=== PATIENT | male | born 1990 | race American Indian/Alaskan Native ===

== ENCOUNTER 2017-03-19 10:41 | Emergency (ER) | payer MEDICAID, OTHER ==
--- NOTE | 2017-03-19 10:55 | EDM.PDOC ---
ED HPI GENERAL MEDICAL PROBLEM - General Chief Complaint: Behavioral/Psych Stated Complaint: [facility] Time Seen by Provider: 03/19/17 10:49 Source of Information: Reports: Patient, Old Records, RN, RN Notes Reviewed, Other (Caridad Daniels ([facility])) - History of Present Illness INITIAL COMMENTS - FREE TEXT/NARRATIVE: Arrives to ER from the [facility] detained by police with report from Caridad Daniels that the pt has been place on an involuntary hold for transfer and admission to [facility] to Dr. Kimble following a medical screening exam in the ER. Pt has Hx of Bipoloar D/O, ADHD, Disruptive D/O, Impulse Control and Conduct D/O , with Borderline Intellectual Functioning, Alcohol Syndrome, OCD, and substance abuse. Pt is not able to provide any significant history. Pt denies any concerns of medical illness, or recent injury. Onset: Unknown/Unsure Duration: Chronic, Getting Worse Location: Reports: Generalized Quality: Reports: Same as Previous Episode Severity: Severe Improves with: Reports: None Worsens with: Reports: Other (noncompliance with medications, and substance abuse) Associated Symptoms: Reports: No Other Symptoms - Related Data Allergies Allergy/AdvReac Type Severity Reaction Status Date / Time cephalexin monohydrate Allergy Hives Verified 03/19/17 10:59 [From Keflex] Home Meds: Home Meds risperiDONE Microspheres [RisperiDAL Consta] 25 mg IM .Q2WEEK 10/10/14 [History] FLUoxetine [PROzac] 20 mg PO DAILY 01/09/16 [History] atoMOXetine [Strattera] 60 mg PO DAILY 01/09/16 [History] hydrOXYzine Pamoate [Hydroxyzine Pamoate] 50 mg PO BEDTIME 01/09/16 [History] Past Medical History - Past Health History Medical/Surgical History: Denies Medical/Surgical History Musculoskeletal History: Reports: Fracture Other Musculoskeletal History: RIGHT WRIST FRACTURE Neurological History: Reports: Other (See Below) Other Neuro History: Impulse Control Disorder Psychiatric History: Reports: ADHD, Addiction, Aggressive/Hostile Behaviors, Anxiety, Bipolar, Depression, Developmental Delay (FAS), Emotional Problems, Learning Disability, Mood Swings, OCD, Psych Hospitalization(s), Other (See Below) Other Psychiatric History: Polysubstance abuse in the past. Alcoholism. Outbursts of anger/impulse control disorder. Endocrine/Metabolic History: Reports: Obesity/BMI 30+ Dermatologic History: Reports: Cellulitis, Other (See Below) Other Dermatologic History: CHICKEN POX - Infectious Disease History Infectious Disease History: Reports: Chicken Pox Social & Family History - Family History Family Medical History: Unobtainable (pt not sure) - Tobacco Use Smoking Status *Q: Current Status Unknown Second Hand Smoke Exposure: Yes - Caffeine Use Caffeine Use: Reports: Coffee, Energy Drinks, Soda - Alcohol Use Alcohol Use History: Yes Days Per Week of Alcohol Use: 7 Number of Drinks Per Day: 24 Total Drinks Per Week: 168 Alcohol Use Frequency: Daily - Recreational Drug Use Recreational Drug Use: Yes Drug Use in Last 12 Months: Yes Recreational Drug Type: Reports: Marijuana/Hashish Recreational Drug Use Frequency: Socially - Sexual History Sexual History: Reports: Sexually Active - Living Situation & Occupation Living situation: Reports: with Family Occupation: Employed ED ROS GENERAL - Review of Systems Review Of Systems: ROS reveals no pertinent complaints other than HPI. ED EXAM, BEHAVIORAL HEALTH - Physical Exam Exam: See Below Exam Limited By: No Limitations General Appearance: Alert, WD/WN, No Apparent Distress Eye Exam: Bilateral Eye: Normal Inspection Ears: Normal External Exam, Hearing Grossly Normal Nose: Normal Inspection Throat/Mouth: Normal Inspection Head: Atraumatic, Normocephalic Neck: Normal Inspection Respiratory/Chest: No Respiratory Distress, Normal Breath Sounds Cardiovascular: Regular Rate, Rhythm GI/Abdominal: Normal Bowel Sounds, Soft, Non-Tender, No Distention (Male) Exam: Deferred Rectal (Males) Exam: Deferred Back Exam: Normal Inspection Extremities: Normal Inspection Neurological: Alert, Normal Gait, No Motor/Sensory Deficits Psychiatric: Flat Affect, Restless, Poor Eye Contact Skin Exam: Warm, Dry, Intact, Normal color, No rash COURSE, BEHAVIORAL HEALTH COMP - Course Vital Signs: Last Vital Signs Temp 36.2 C 03/19/17 11:07 Pulse 92 03/19/17 11:07 Resp 16 03/19/17 11:07 BP 127/81 03/19/17 11:07 Pulse Ox 98 03/19/17 11:07 Orders, Labs, Meds: Laboratory Tests 03/19/17 03/19/17 03/19/17 Range/Units 10:55 10:55 10:58 WBC 4.7 L (5.0-10.0) 10^3/uL RBC 5.39 (4.6-6.2) 10^6/uL Hgb 15.2 (14.0-18.0) g/dL Hct 45.0 (40.0-54.0) % MCV 83.5 (80-100) fL MCH 28.2 (27.0-34.0) pg MCHC 33.8 (33.0-35.0) g/dL Plt Count 261 (150-450) 10^3/uL Neut % (Auto) 53.4 (42.2-75.2) % Lymph % (Auto) 34.8 (20.5-50.1) % [place] % (Auto) 8.4 H (2-8) % Eos % (Auto) 3.2 H (1.0-3.0) % Baso % (Auto) 0.2 (0.0-1.0) % Sodium 140 (135-145) mmol/L Potassium 3.3 L (3.6-5.0) mmol/L Chloride 107 (101-111) mmol/L Carbon Dioxide 22.0 (21.0-31.0) mmol/L Anion Gap 14.3 BUN 5 L (7-18) mg/dL Creatinine 0.8 (0.6-1.3) mg/dL Est Cr Clr Drug Dosing 138.70 mL/min Estimated GFR (MDRD) > 60 BUN/Creatinine Ratio 6.25 Glucose 136 H (74-105) mg/dL Calcium 8.8 (8.4-10.2) mg/dl Total Bilirubin 0.6 (0.2-1.0) mg/dL AST 49 H (10-42) IU/L ALT 39 (10-60) IU/L Alkaline Phosphatase 113 (42-121) IU/L Total Protein 8.3 H (6.7-8.2) g/dl Albumin 4.3 (3.2-5.5) g/dl Globulin 4.0 Albumin/Globulin Ratio 1.08 Urine Color (YELLOW) Urine Appearance (CLEAR) Urine pH (5.0-9.0) Ur Specific [place] (1.005-1.030) Urine Protein (NEGATIVE) Urine Glucose (UA) (NEGATIVE) Urine Ketones (NEGATIVE) Urine Occult Blood (NEGATIVE) Urine Nitrite (NEGATIVE) Urine Bilirubin (NEGATIVE) Urine Urobilinogen (0.2-1.0) mg/dL Ur Leukocyte Esterase (NEGATIVE) Urine RBC /HPF Urine WBC (0-5/HPF) /HPF Ur Epithelial Cells /HPF Urine Bacteria (0-FEW/HPF) /HPF Urine Mucus /LPF Salicylates < 4 Urine Opiates Screen Negative (NEGATIVE) Ur Oxycodone Screen Negative (NEGATIVE) Urine Methadone Screen Negative (NEGATIVE) Acetaminophen < 10 Ur Barbiturates Screen Negative (NEGATIVE) U Tricyclic Antidepress Negative (NEGATIVE) Ur Phencyclidine Scrn Negative (NEGATIVE) Ur Amphetamine Screen Negative (NEGATIVE) U Methamphetamines Scrn Negative (NEGATIVE) Urine MDMA Screen Negative (NEGATIVE) U Benzodiazepines Scrn Negative (NEGATIVE) Urine Cocaine Screen Negative (NEGATIVE) U Marijuana (THC) Screen Positive H (NEGATIVE) Ethyl Alcohol 87 mg/dL 03/19/17 Range/Units 10:58 WBC (5.0-10.0) 10^3/uL RBC (4.6-6.2) 10^6/uL Hgb (14.0-18.0) g/dL Hct (40.0-54.0) % MCV (80-100) fL MCH (27.0-34.0) pg MCHC (33.0-35.0) g/dL Plt Count (150-450) 10^3/uL Neut % (Auto) (42.2-75.2) % Lymph % (Auto) (20.5-50.1) % [place] % (Auto) (2-8) % Eos % (Auto) (1.0-3.0) % Baso % (Auto) (0.0-1.0) % Sodium (135-145) mmol/L Potassium (3.6-5.0) mmol/L Chloride (101-111) mmol/L Carbon Dioxide (21.0-31.0) mmol/L Anion Gap BUN (7-18) mg/dL Creatinine (0.6-1.3) mg/dL Est Cr Clr Drug Dosing mL/min Estimated GFR (MDRD) BUN/Creatinine Ratio Glucose (74-105) mg/dL Calcium (8.4-10.2) mg/dl Total Bilirubin (0.2-1.0) mg/dL AST (10-42) IU/L ALT (10-60) IU/L Alkaline Phosphatase (42-121) IU/L Total Protein (6.7-8.2) g/dl Albumin (3.2-5.5) g/dl Globulin Albumin/Globulin Ratio Urine Color Yellow (YELLOW) Urine Appearance Slightly cloudy (CLEAR) Urine pH 5.5 (5.0-9.0) Ur Specific [place] 1.020 (1.005-1.030) Urine Protein Negative (NEGATIVE) Urine Glucose (UA) Negative (NEGATIVE) Urine Ketones Trace H (NEGATIVE) Urine Occult Blood Negative (NEGATIVE) Urine Nitrite Negative (NEGATIVE) Urine Bilirubin Negative (NEGATIVE) Urine Urobilinogen 0.2 (0.2-1.0) mg/dL Ur Leukocyte Esterase Negative (NEGATIVE) Urine RBC 0-5 /HPF Urine WBC 0-5 (0-5/HPF) /HPF Ur Epithelial Cells Rare /HPF Urine Bacteria Rare (0-FEW/HPF) /HPF Urine Mucus Few H /LPF Salicylates Urine Opiates Screen (NEGATIVE) Ur Oxycodone Screen (NEGATIVE) Urine Methadone Screen (NEGATIVE) Acetaminophen Ur Barbiturates Screen (NEGATIVE) U Tricyclic Antidepress (NEGATIVE) Ur Phencyclidine Scrn (NEGATIVE) Ur Amphetamine Screen (NEGATIVE) U Methamphetamines Scrn (NEGATIVE) Urine MDMA Screen (NEGATIVE) U Benzodiazepines Scrn (NEGATIVE) Urine Cocaine Screen (NEGATIVE) U Marijuana (THC) Screen (NEGATIVE) Ethyl Alcohol mg/dL Medical Clearance: 03/19/17 11:25 NO MEDICAL CONTRAINDICATION TO BEING ADMITTED TO INPATIENT PSYCHIATRIC FACILITY AT THIS TIME. Departure - Departure Time of Disposition: 11:30 Disposition: DC/Tfer to Psych Hosp/Unit 65 Condition: serious Clinical Impression: Marijuana abuse, Alcohol abuse Bipolar disorder current episode depressed Qualifiers: Current episode severity: severe Psychotic features: with psychotic features Qualified Code(s): F31.5 - Bipolar disorder, current episode depressed, severe, with psychotic features - Discharge Information Forms: ED Department Discharge, Interfacility Transfer EMTALA
[2017-03-19 11:19] LABS: CHLORIDE,CL 107 mmol/L (101-111); SODIUM,NA 140 mmol/L (135-145)
[2017-03-19 11:20] LABS: ACETAMINOPHEN < 10
[2017-03-19 11:24] VITALS: BP 127/81
== END 2017-03-19 11:40 ==
LOC: DL.ED 10:41
DX: F10.10 Alcohol abuse, uncomplicated (principal); F12.10 Cannabis abuse, uncomplicated; F31.5 Bipolar disorder, current episode depressed, severe, with psychotic features; E66.9 Obesity, unspecified; F41.9 Anxiety disorder, unspecified; Z88.8 Allergy status to other drugs, medicaments and biological substances; Z79.899 Other long term (current) drug therapy; Y90.4 Blood alcohol level of 80-99 mg/100 ml
CPT/HCPCS: 36415; 80053; 80305; 81001; 85025; 99284; G0480

== ENCOUNTER 2019-06-23 16:41 | Observation (INO) | payer MEDICAID ==
[2019-06-23] MEDS ORDERED: Sodium Chloride 0.9% 1,000 ML IV ONE (16:51)
[2019-06-23] MEDS: Sodium Chloride 0.9% 10 ML Syringe FLUSH PRN (17:33)
[2019-06-23 17:44] LABS: ANION GAP 19.6; CHLORIDE,CL 106 mmol/L (101-111); SODIUM,NA 146 mmol/L (135-145)
[2019-06-23 17:46] LABS: ACETAMINOPHEN < 10 ug/mL
[2019-06-23] MEDS ORDERED: Sodium Chloride 0.9% 10 ML Syringe FLUSH PRN (19:02)
--- NOTE | 2019-06-23 19:24 | PCM.HP ---
H&P History of Present Illness - General Date of Service: 06/23/19 Admit Problem/Dx: Admission Diagnosis/Problem Admission Diagnosis/Problem Suicidal behavior Source of Information: Patient History Limitations: Reports: Intoxication - History of Present Illness Initial Comments - Free Text/Narative: 28 yo M with PMH of alcohol abuse disorder, psychiatric illness presents with alcoholic intoxication and suicidal ideation. History is limited as patient is intoxicated. He admits taking substances to get "high". Alcohol level is 352, salicylate, acetaminophen are negative. LFTs are however elevated. Patient has no chest pain, no SOB, no abd pain, no nausea or vomiting. He admits to having suicidal ideation, but had no plans. Will transfer to [facility] when medically stable. - Related Data Allergies/Adverse Reactions: Allergies Allergy/AdvReac Type Severity Reaction Status Date / Time cefprozil Allergy Hives Verified 05/01/19 07:38 cephalexin monohydrate Allergy Hives Verified 03/19/17 10:59 [From Keflex] Home Medications: Home Meds Naltrexone Microspheres [Vivitrol] 380 mg INJECT .[id number] 04/28/19 [History] risperiDONE [Risperdal] 37.5 mg INJECT .[id number] 04/28/19 [History] Past Medical History - Past Health History Medical/Surgical History: Denies Medical/Surgical History HEENT History: Reports: None Cardiovascular History: Reports: None Respiratory History: Reports: None Gastrointestinal History: Reports: None Other Gastrointestinal History: THROWING UP BLOOD Genitourinary History: Reports: None Musculoskeletal History: Reports: Fracture Other Musculoskeletal History: RIGHT WRIST FRACTURE Neurological History: Reports: Other (See Below) Other Neuro History: Impulse Control Disorder Psychiatric History: Reports: ADHD, Addiction, Aggressive/Hostile Behaviors, Anxiety, Bipolar, Depression, Developmental Delay, Emotional Problems, Learning Disability, Mood Swings, OCD, Psych Hospitalization(s), Other (See Below) Other Psychiatric History: Polysubstance abuse in the past. Alcoholism. Outbursts of anger/impulse control disorder. Endocrine/Metabolic History: Reports: Obesity/BMI 30+ Hematologic History: Reports: None Immunologic History: Reports: None Oncologic (Cancer) History: Reports: None Dermatologic History: Reports: Cellulitis, Other (See Below) Other Dermatologic History: CHICKEN POX - Infectious Disease History Infectious Disease History: Reports: Chicken Pox - Past Surgical History Head Surgeries/Procedures: Reports: None HEENT Surgical History: Reports: None Cardiovascular Surgical History: Reports: None GI Surgical History: Reports: None Male Surgical History: Reports: None Musculoskeletal Surgical History: Reports: None Social & Family History - Family History Family Medical History: Unobtainable - Tobacco Use Smoking Status *Q: Current Every Day Smoker Years of Tobacco use: 20 Packs/Tins Daily: 1 - Caffeine Use Caffeine Use: Reports: Soda - Alcohol Use Days Per Week of Alcohol Use: 7 Number of Drinks Per Day: 10 Total Drinks Per Week: 70 Date of Last Drink: 06/23/19 - Recreational Drug Use Recreational Drug Use: Yes Drug Use in Last 12 Months: Yes Recreational Drug Type: Reports: Marijuana/Hashish, Methamphetamine Recreational Drug Use Frequency: Socially - Sexual History Sexual History: Reports: Sexually Active - Living Situation & Occupation Living situation: Reports: with Family Occupation: Employed H&P Review of Systems - Review of Systems: Review Of Systems: Unable To Obtain (intoxication) Exam - Exam Exam: See Below - Vital Signs Vital Signs: Last Vital Signs Temp 36.6 C 06/23/19 18:46 Pulse 91 06/23/19 18:46 Resp 18 06/23/19 18:46 BP 124/79 06/23/19 18:46 Pulse Ox 100 06/23/19 18:46 Weight: 117.934 kg - Exam General: Other (intoxicated) HEENT: Hearing Intact, Pupils Equal, Pupils Reactive Neck: Supple, Trachea Midline Lungs: Clear to Auscultation, Normal Respiratory Effort Cardiovascular: Regular Rate, Regular Rhythm GI/Abdominal Exam: Normal Bowel Sounds, Soft, Tender Extremities: Normal Inspection, Normal Range of Motion, Non-Tender, No Pedal Edema - Patient Data Lab Results Last 24 hrs: Laboratory Results - last 24 hr 06/23/19 06/23/19 06/23/19 Range/Units 16:50 16:50 17:06 WBC 7.2 (5.0-10.0) 10^3/uL RBC 5.65 (4.6-6.2) 10^6/uL Hgb 16.2 (14.0-18.0) g/dL Hct 48.2 (40.0-54.0) % MCV 85.3 (80-100) fL MCH 28.7 (27.0-34.0) pg MCHC 33.6 (33.0-35.0) g/dL Plt Count 323 (150-450) 10^3/uL Neut % (Auto) 57.5 (42.2-75.2) % Lymph % (Auto) 34.8 (20.5-50.1) % [place] % (Auto) 6.0 (2-8) % Eos % (Auto) 1.4 (1.0-3.0) % Baso % (Auto) 0.3 (0.0-1.0) % Sodium (135-145) mmol/L Potassium (3.6-5.0) mmol/L Chloride (101-111) mmol/L Carbon Dioxide (21.0-31.0) mmol/L Anion Gap BUN (7-18) mg/dL Creatinine (0.6-1.3) mg/dL Est Cr Clr Drug Dosing Estimated GFR (MDRD) BUN/Creatinine Ratio Glucose (74-105) mg/dL Calcium (8.4-10.2) mg/dl Total Bilirubin (0.2-1.0) mg/dL AST (10-42) IU/L ALT (10-60) IU/L Alkaline Phosphatase (42-121) IU/L Total Protein (6.7-8.2) g/dl Albumin (3.2-5.5) g/dl Globulin Albumin/Globulin Ratio Urine Color Yellow (YELLOW) Urine Appearance Clear (CLEAR) Urine pH 6.0 (5.0-9.0) Ur Specific [place] <= 1.005 (1.005-1.030) Urine Protein Negative (NEGATIVE) Urine Glucose (UA) Negative (NEGATIVE) Urine Ketones Trace H (NEGATIVE) Urine Occult Blood Negative (NEGATIVE) Urine Nitrite Negative (NEGATIVE) Urine Bilirubin Negative (NEGATIVE) Urine Urobilinogen 1.0 (0.2-1.0) mg/dL Ur Leukocyte Esterase Negative (NEGATIVE) Salicylates mg/dL Urine Opiates Screen Negative (NEGATIVE) Ur Oxycodone Screen Negative (NEGATIVE) Urine Methadone Screen Negative (NEGATIVE) Acetaminophen ug/mL Ur Barbiturates Screen Negative (NEGATIVE) U Tricyclic Antidepress Negative (NEGATIVE) Ur Phencyclidine Scrn Negative (NEGATIVE) Ur Amphetamine Screen Negative (NEGATIVE) U Methamphetamines Scrn Negative (NEGATIVE) Urine MDMA Screen Negative (NEGATIVE) U Benzodiazepines Scrn Negative (NEGATIVE) Urine Cocaine Screen Negative (NEGATIVE) U Marijuana (THC) Screen Negative (NEGATIVE) Ethyl Alcohol mg/dL 06/23/19 Range/Units 17:06 WBC (5.0-10.0) 10^3/uL RBC (4.6-6.2) 10^6/uL Hgb (14.0-18.0) g/dL Hct (40.0-54.0) % MCV (80-100) fL MCH (27.0-34.0) pg MCHC (33.0-35.0) g/dL Plt Count (150-450) 10^3/uL Neut % (Auto) (42.2-75.2) % Lymph % (Auto) (20.5-50.1) % [place] % (Auto) (2-8) % Eos % (Auto) (1.0-3.0) % Baso % (Auto) (0.0-1.0) % Sodium 146 H (135-145) mmol/L Potassium 3.6 (3.6-5.0) mmol/L Chloride 106 (101-111) mmol/L Carbon Dioxide 24.0 (21.0-31.0) mmol/L Anion Gap 19.6 BUN 3 L (7-18) mg/dL Creatinine 0.8 (0.6-1.3) mg/dL Est Cr Clr Drug Dosing TNP Estimated GFR (MDRD) > 60 BUN/Creatinine Ratio 3.75 Glucose 103 (74-105) mg/dL Calcium 8.7 (8.4-10.2) mg/dl Total Bilirubin 1.1 H (0.2-1.0) mg/dL AST 469 H (10-42) IU/L ALT 457 H (10-60) IU/L Alkaline Phosphatase 129 H (42-121) IU/L Total Protein 9.1 H (6.7-8.2) g/dl Albumin 4.5 (3.2-5.5) g/dl Globulin 4.6 Albumin/Globulin Ratio 0.98 Urine Color (YELLOW) Urine Appearance (CLEAR) Urine pH (5.0-9.0) Ur Specific [place] (1.005-1.030) Urine Protein (NEGATIVE) Urine Glucose (UA) (NEGATIVE) Urine Ketones (NEGATIVE) Urine Occult Blood (NEGATIVE) Urine Nitrite (NEGATIVE) Urine Bilirubin (NEGATIVE) Urine Urobilinogen (0.2-1.0) mg/dL Ur Leukocyte Esterase (NEGATIVE) Salicylates < 4 mg/dL Urine Opiates Screen (NEGATIVE) Ur Oxycodone Screen (NEGATIVE) Urine Methadone Screen (NEGATIVE) Acetaminophen < 10 ug/mL Ur Barbiturates Screen (NEGATIVE) U Tricyclic Antidepress (NEGATIVE) Ur Phencyclidine Scrn (NEGATIVE) Ur Amphetamine Screen (NEGATIVE) U Methamphetamines Scrn (NEGATIVE) Urine MDMA Screen (NEGATIVE) U Benzodiazepines Scrn (NEGATIVE) Urine Cocaine Screen (NEGATIVE) U Marijuana (THC) Screen (NEGATIVE) Ethyl Alcohol 352 mg/dL Result Diagrams: 06/23/19 17:06 06/23/19 17:06 Problem List Initiated/Reviewed/Updated: Yes Orders Last 24hrs: Active Orders 24 hr Category Date Time Status Admission Diagnosis [ADT] Routine ADT 06/23/19 18:39 Ordered Patient Status [ADT] Routine ADT 06/23/19 18:39 Active Ambulate [RC] ASDIRECTED Care 06/23/19 19:03 Active Height and Weight [RC] DAILY Care 06/23/19 19:03 Active Oxygen Therapy [RC] PRN Care 06/23/19 19:03 Active Peripheral IV Care [RC] , Care 06/23/19 16:51 Active Suicide Precautions [RC] ASDIRECTED Care 06/23/19 19:03 Active Up With Assistance [RC] ASDIRECTED Care 06/23/19 19:03 Active VTE/DVT Education [RC] PER UNIT ROUTINE Care 06/23/19 19:03 Active Vital Signs [RC] Q4H Care 06/23/19 19:03 Active NPO After Midnight [Nothing per Oral After Midnight Diet 06/24/19 Breakfast Ordered Diet] [DIET] Regular Diet [DIET] Diet 06/23/19 Breakfast Active Abdomen Comp [US] Routine Exams 06/23/19 19:04 Ordered AMYLASE [CHEM] Routine Lab 06/23/19 19:07 Ordered BASIC METABOLIC PANEL,BMP [CHEM] AM Lab 06/24/19 05:11 Ordered BASIC METABOLIC PANEL,BMP [CHEM] AM Lab 06/25/19 05:11 Ordered BASIC METABOLIC PANEL,BMP [CHEM] AM Lab 06/26/19 05:11 Ordered CBC W/O DIFF,HEMOGRAM [HEME] AM Lab 06/24/19 05:11 Ordered CBC W/O DIFF,HEMOGRAM [HEME] AM Lab 06/25/19 05:11 Ordered CBC W/O DIFF,HEMOGRAM [HEME] AM Lab 06/26/19 05:11 Ordered HEPATIC FUNCTION PANEL,HFP [CHEM] AM Lab 06/24/19 05:11 Ordered HEPATIC FUNCTION PANEL,HFP [CHEM] AM Lab 06/25/19 05:11 Ordered HEPATIC FUNCTION PANEL,HFP [CHEM] AM Lab 06/26/19 05:11 Ordered LIPASE [CHEM] Routine Lab 06/23/19 19:07 Ordered Enoxaparin [Lovenox] Med 06/23/19 19:15 Ordered 40 mg SUBCUT DAILY LORazepam [Ativan] Med 06/23/19 19:02 Ordered See Protocol IVPUSH TITRATE PRN LORazepam [Ativan] Med 06/23/19 19:02 Ordered See Protocol PO TITRATE PRN Sodium Chloride 0.9% [Normal Saline] 1,000 ml Med 06/23/19 19:15 Ordered IV ASDIRECTED Sodium Chloride 0.9% [Saline Flush] Med 06/23/19 16:51 Active 10 ml FLUSH ASDIRECTED PRN Sodium Chloride 0.9% [Saline Flush] Med 06/23/19 19:02 Ordered 10 ml FLUSH ASDIRECTED PRN Peripheral IV Insertion Adult [OM.PC] Routine Oth 06/23/19 19:03 Ordered Peripheral IV Insertion Adult [OM.PC] Stat Ot 06/23/19 16:50 Ordered Saline Lock Insert [OM.PC] Routine Oth 06/23/19 19:03 Ordered Suicide Precautions BH [BH] Routine Ot 06/23/19 19:03 Ordered Suicide Precautions [OM.PC] Routine Ot 06/23/19 19:03 Ordered Resuscitation Status Routine Resus Stat 06/23/19 19:02 Ordered Medication Orders Enoxaparin Sodium (Lovenox) 40 mg SUBCUT DAILY SHERICE Sodium Chloride (Normal Saline) 1,000 mls @ 100 mls/hr IV ASDIRECTED SHERICE Lorazepam (Ativan) 0 mg PO TITRATE PRN; Protocol PRN Reason: Withdrawal Symptoms Lorazepam (Ativan) 0 mg IVPUSH TITRATE PRN; Protocol PRN Reason: Withdrawal Symptoms Sodium Chloride (Saline Flush) 10 ml FLUSH ASDIRECTED PRN PRN Reason: Keep Vein Open Last Admin: 06/23/19 17:33 Dose: 10 ml Sodium Chloride (Saline Flush) 10 ml FLUSH ASDIRECTED PRN PRN Reason: Keep Vein Open Assessment/Plan Comment:: Alcohol intoxication Monitor for alcohol withdrawal CIWA monitoring PRN ativan oral thiamine Elevated LFTs check lipase, amylase trend LFTs check RUQ US Suicidal ideation Suicidal precautions Transfer to [facility]U when medically stable DVT ppx SC lovenox
[2019-06-23] MEDS: Enoxaparin 40 MG/0.4 ML Syringe SUBCUT SCH (19:55)
[2019-06-23] MEDS: Sodium Chloride 0.9% 1,000 ML IV SCH (20:26)
[2019-06-23] MEDS: LORazepam 2 MG/ML Syringe IVPUSH PRN ×2 (20:26→22:07)
[2019-06-23] MEDS: Thiamine 100 MG Tab PO SCH (23:08)
[2019-06-24] MEDS: LORazepam 2 MG/ML Syringe IVPUSH PRN ×5 (00:06→05:46)
[2019-06-24] MEDS: Sodium Chloride 0.9% 1,000 ML IV SCH ×2 (05:46→15:42)
[2019-06-24 07:11] LABS: ANION GAP 15.6; CHLORIDE,CL 106 mmol/L (101-111); SODIUM,NA 145 mmol/L (135-145)
[2019-06-24] MEDS: LORazepam 1 MG Tab PO PRN ×5 (08:07→17:27)
[2019-06-24] MEDS: Enoxaparin 40 MG/0.4 ML Syringe SUBCUT SCH (08:09)
--- NOTE | 2019-06-24 11:42 | PCM.PN ---
- General Info Date of Service: 06/24/19 Admission Dx/Problem (Free Text): Admission Diagnosis/Problem Admission Diagnosis/Problem Suicidal behavior Subjective Update: No new complaints CIWA 16 this morning - Review of Systems General: Reports: Other (features of alcohol withdrawal) HEENT: Reports: No Symptoms Pulmonary: Reports: No Symptoms Cardiovascular: Reports: No Symptoms Gastrointestinal: Reports: No Symptoms Genitourinary: Reports: No Symptoms Musculoskeletal: Reports: No Symptoms - Patient Data Vitals - Most Recent: Last Vital Signs Temp 37.2 C 06/24/19 07:58 Pulse 124 H 06/24/19 07:58 Resp 20 06/24/19 07:58 BP 84/63 L 06/24/19 07:58 Pulse Ox 98 06/24/19 07:58 Weight - Most Recent: 103.102 kg I&O - Last 24 Hours: Intake & Output 06/23/19 06/24/19 06/24/19 22:59 06:59 14:59 Intake Total 600 Balance 600 Lab Results Last 24 Hours: Laboratory Results - last 24 hr 06/23/19 06/23/19 06/23/19 Range/Units 16:50 16:50 17:06 WBC 7.2 (5.0-10.0) 10^3/uL RBC 5.65 (4.6-6.2) 10^6/uL Hgb 16.2 (14.0-18.0) g/dL Hct 48.2 (40.0-54.0) % MCV 85.3 (80-100) fL MCH 28.7 (27.0-34.0) pg MCHC 33.6 (33.0-35.0) g/dL Plt Count 323 (150-450) 10^3/uL Neut % (Auto) 57.5 (42.2-75.2) % Lymph % (Auto) 34.8 (20.5-50.1) % [place] % (Auto) 6.0 (2-8) % Eos % (Auto) 1.4 (1.0-3.0) % Baso % (Auto) 0.3 (0.0-1.0) % Sodium (135-145) mmol/L Potassium (3.6-5.0) mmol/L Chloride (101-111) mmol/L Carbon Dioxide (21.0-31.0) mmol/L Anion Gap BUN (7-18) mg/dL Creatinine (0.6-1.3) mg/dL Est Cr Clr Drug Dosing Estimated GFR (MDRD) BUN/Creatinine Ratio Glucose (74-105) mg/dL Calcium (8.4-10.2) mg/dl Total Bilirubin (0.2-1.0) mg/dL Direct Bilirubin (0.0-0.2) mg/dL Indirect Bilirubin AST (10-42) IU/L ALT (10-60) IU/L Alkaline Phosphatase (42-121) IU/L Total Protein (6.7-8.2) g/dl Albumin (3.2-5.5) g/dl Globulin Albumin/Globulin Ratio Amylase (28-100) U/L Lipase (22-51) U/L Urine Color Yellow (YELLOW) Urine Appearance Clear (CLEAR) Urine pH 6.0 (5.0-9.0) Ur Specific [place] <= 1.005 (1.005-1.030) Urine Protein Negative (NEGATIVE) Urine Glucose (UA) Negative (NEGATIVE) Urine Ketones Trace H (NEGATIVE) Urine Occult Blood Negative (NEGATIVE) Urine Nitrite Negative (NEGATIVE) Urine Bilirubin Negative (NEGATIVE) Urine Urobilinogen 1.0 (0.2-1.0) mg/dL Ur Leukocyte Esterase Negative (NEGATIVE) Salicylates mg/dL Urine Opiates Screen Negative (NEGATIVE) Ur Oxycodone Screen Negative (NEGATIVE) Urine Methadone Screen Negative (NEGATIVE) Acetaminophen ug/mL Ur Barbiturates Screen Negative (NEGATIVE) U Tricyclic Antidepress Negative (NEGATIVE) Ur Phencyclidine Scrn Negative (NEGATIVE) Ur Amphetamine Screen Negative (NEGATIVE) U Methamphetamines Scrn Negative (NEGATIVE) Urine MDMA Screen Negative (NEGATIVE) U Benzodiazepines Scrn Negative (NEGATIVE) Urine Cocaine Screen Negative (NEGATIVE) U Marijuana (THC) Screen Negative (NEGATIVE) Ethyl Alcohol mg/dL 06/23/19 06/23/19 06/24/19 Range/Units 17:06 17:06 06:17 WBC 6.8 (5.0-10.0) 10^3/uL RBC 5.20 (4.6-6.2) 10^6/uL Hgb 15.0 (14.0-18.0) g/dL Hct 45.5 (40.0-54.0) % MCV 87.5 (80-100) fL MCH 28.8 (27.0-34.0) pg MCHC 33.0 (33.0-35.0) g/dL Plt Count 310 (150-450) 10^3/uL Neut % (Auto) (42.2-75.2) % Lymph % (Auto) (20.5-50.1) % [place] % (Auto) (2-8) % Eos % (Auto) (1.0-3.0) % Baso % (Auto) (0.0-1.0) % Sodium 146 H (135-145) mmol/L Potassium 3.6 (3.6-5.0) mmol/L Chloride 106 (101-111) mmol/L Carbon Dioxide 24.0 (21.0-31.0) mmol/L Anion Gap 19.6 BUN 3 L (7-18) mg/dL Creatinine 0.8 (0.6-1.3) mg/dL Est Cr Clr Drug Dosing TNP Estimated GFR (MDRD) > 60 BUN/Creatinine Ratio 3.75 Glucose 103 (74-105) mg/dL Calcium 8.7 (8.4-10.2) mg/dl Total Bilirubin 1.1 H (0.2-1.0) mg/dL Direct Bilirubin (0.0-0.2) mg/dL Indirect Bilirubin AST 469 H (10-42) IU/L ALT 457 H (10-60) IU/L Alkaline Phosphatase 129 H (42-121) IU/L Total Protein 9.1 H (6.7-8.2) g/dl Albumin 4.5 (3.2-5.5) g/dl Globulin 4.6 Albumin/Globulin Ratio 0.98 Amylase 46 (28-100) U/L Lipase 47 (22-51) U/L Urine Color (YELLOW) Urine Appearance (CLEAR) Urine pH (5.0-9.0) Ur Specific [place] (1.005-1.030) Urine Protein (NEGATIVE) Urine Glucose (UA) (NEGATIVE) Urine Ketones (NEGATIVE) Urine Occult Blood (NEGATIVE) Urine Nitrite (NEGATIVE) Urine Bilirubin (NEGATIVE) Urine Urobilinogen (0.2-1.0) mg/dL Ur Leukocyte Esterase (NEGATIVE) Salicylates < 4 mg/dL Urine Opiates Screen (NEGATIVE) Ur Oxycodone Screen (NEGATIVE) Urine Methadone Screen (NEGATIVE) Acetaminophen < 10 ug/mL Ur Barbiturates Screen (NEGATIVE) U Tricyclic Antidepress (NEGATIVE) Ur Phencyclidine Scrn (NEGATIVE) Ur Amphetamine Screen (NEGATIVE) U Methamphetamines Scrn (NEGATIVE) Urine MDMA Screen (NEGATIVE) U Benzodiazepines Scrn (NEGATIVE) Urine Cocaine Screen (NEGATIVE) U Marijuana (THC) Screen (NEGATIVE) Ethyl Alcohol 352 mg/dL 06/24/19 Range/Units 06:17 WBC (5.0-10.0) 10^3/uL RBC (4.6-6.2) 10^6/uL Hgb (14.0-18.0) g/dL Hct (40.0-54.0) % MCV (80-100) fL MCH (27.0-34.0) pg MCHC (33.0-35.0) g/dL Plt Count (150-450) 10^3/uL Neut % (Auto) (42.2-75.2) % Lymph % (Auto) (20.5-50.1) % [place] % (Auto) (2-8) % Eos % (Auto) (1.0-3.0) % Baso % (Auto) (0.0-1.0) % Sodium 145 (135-145) mmol/L Potassium 3.6 (3.6-5.0) mmol/L Chloride 106 (101-111) mmol/L Carbon Dioxide 27.0 (21.0-31.0) mmol/L Anion Gap 15.6 BUN 6 L (7-18) mg/dL Creatinine 0.8 (0.6-1.3) mg/dL Est Cr Clr Drug Dosing 149.54 Estimated GFR (MDRD) > 60 BUN/Creatinine Ratio Glucose 95 (74-105) mg/dL Calcium 8.9 (8.4-10.2) mg/dl Total Bilirubin 1.0 (0.2-1.0) mg/dL Direct Bilirubin 0.3 H (0.0-0.2) mg/dL Indirect Bilirubin 0.7 AST 437 H (10-42) IU/L ALT 415 H (10-60) IU/L Alkaline Phosphatase 122 H (42-121) IU/L Total Protein 8.5 H (6.7-8.2) g/dl Albumin 4.0 (3.2-5.5) g/dl Globulin 4.5 Albumin/Globulin Ratio 0.89 Amylase (28-100) U/L Lipase (22-51) U/L Urine Color (YELLOW) Urine Appearance (CLEAR) Urine pH (5.0-9.0) Ur Specific [place] (1.005-1.030) Urine Protein (NEGATIVE) Urine Glucose (UA) (NEGATIVE) Urine Ketones (NEGATIVE) Urine Occult Blood (NEGATIVE) Urine Nitrite (NEGATIVE) Urine Bilirubin (NEGATIVE) Urine Urobilinogen (0.2-1.0) mg/dL Ur Leukocyte Esterase (NEGATIVE) Salicylates mg/dL Urine Opiates Screen (NEGATIVE) Ur Oxycodone Screen (NEGATIVE) Urine Methadone Screen (NEGATIVE) Acetaminophen ug/mL Ur Barbiturates Screen (NEGATIVE) U Tricyclic Antidepress (NEGATIVE) Ur Phencyclidine Scrn (NEGATIVE) Ur Amphetamine Screen (NEGATIVE) U Methamphetamines Scrn (NEGATIVE) Urine MDMA Screen (NEGATIVE) U Benzodiazepines Scrn (NEGATIVE) Urine Cocaine Screen (NEGATIVE) U Marijuana (THC) Screen (NEGATIVE) Ethyl Alcohol mg/dL Med Orders - Current: Current Medications Enoxaparin Sodium (Lovenox) 40 mg SUBCUT DAILY [facility] Last Admin: 06/24/19 08:09 Dose: 40 mg Sodium Chloride (Normal Saline) 1,000 mls @ 100 mls/hr IV ASDIRECTED SHERICE Last Admin: 06/24/19 05:46 Dose: 100 mls/hr Lorazepam (Ativan) 0 mg PO TITRATE PRN; Protocol PRN Reason: Withdrawal Symptoms Last Admin: 06/24/19 10:12 Dose: 1 mg Lorazepam (Ativan) 0 mg IVPUSH TITRATE PRN; Protocol PRN Reason: Withdrawal Symptoms Last Admin: 06/24/19 05:46 Dose: 2 mg Sodium Chloride (Saline Flush) 10 ml FLUSH ASDIRECTED PRN PRN Reason: Keep Vein Open Last Admin: 06/23/19 17:33 Dose: 10 ml Sodium Chloride (Saline Flush) 10 ml FLUSH ASDIRECTED PRN PRN Reason: Keep Vein Open Thiamine HCl (Vitamin B-1) 100 mg PO BEDTIME SHERICE Last Admin: 06/23/19 23:08 Dose: Not Given Discontinued Medications Sodium Chloride (Normal Saline) 1,000 mls @ 999 mls/hr IV .BOLUS ONE Stop: 06/23/19 17:51 Last Admin: 06/23/19 17:33 Dose: 999 mls/hr - Exam General: Alert, Oriented HEENT: Pupils Equal, Pupils Reactive Neck: Supple Lungs: Clear to Auscultation, Normal Respiratory Effort Cardiovascular: Regular Rate, Regular Rhythm GI/Abdominal Exam: Normal Bowel Sounds, Soft, Non-Tender, No Organomegaly - Problem List Review Problem List Initiated/Reviewed/Updated: Yes - My Orders Last 24 Hours: My Active Orders 06/23/19 19:02 LORazepam [Ativan] See Protocol IVPUSH TITRATE PRN LORazepam [Ativan] See Protocol PO TITRATE PRN Sodium Chloride 0.9% [Saline Flush] 10 ml FLUSH ASDIRECTED PRN Resuscitation Status Routine 06/23/19 19:03 Ambulate [RC] ASDIRECTED Height and Weight [RC] 0600 Oxygen Therapy [RC] PRN Suicide Precautions [RC] 04,08,12,16,20,00 Up With Assistance [RC] ASDIRECTED VTE/DVT Education [RC] PER UNIT ROUTINE Vital Signs [RC] Q4H Peripheral IV Insertion Adult [OM.PC] Routine Saline Lock Insert [OM.PC] Routine Suicide Precautions BH [] Routine Suicide Precautions [OM.PC] Routine 06/23/19 19:15 Enoxaparin [Lovenox] 40 mg SUBCUT DAILY Sodium Chloride 0.9% [Normal Saline] 1,000 ml IV ASDIRECTED 06/23/19 21:00 Thiamine [Vitamin B-1] 100 mg PO BEDTIME 06/24/19 Breakfast NPO After Midnight [Nothing per Oral After Midnight Diet] [DIET] 06/25/19 05:11 BASIC METABOLIC PANEL,BMP [CHEM] AM CBC W/O DIFF,HEMOGRAM [HEME] AM HEPATIC FUNCTION PANEL,HFP [CHEM] AM 06/26/19 05:11 BASIC METABOLIC PANEL,BMP [CHEM] AM CBC W/O DIFF,HEMOGRAM [HEME] AM HEPATIC FUNCTION PANEL,HFP [CHEM] AM - Plan Plan:: Alcohol intoxication Monitor for alcohol withdrawal CIWA monitoring PRN ativan oral thiamine Elevated LFTs check lipase, amylase: normal trend LFTs: trending down check RUQ US: no features of cholecystitis Elevated LFTs likely 2/2 alcoholic liver disease, chronic Suicidal ideation Suicidal precautions Transfer to CRU when medically stable DVT ppx SC lovenox
[2019-06-25] MEDS: Sodium Chloride 0.9% 1,000 ML IV SCH (01:51)
[2019-06-25] MEDS: Thiamine 100 MG Tab PO SCH ×3 (05:38→20:40)
[2019-06-25] MEDS: LORazepam 1 MG Tab PO PRN ×3 (06:11→19:53)
[2019-06-25 07:11] LABS: ANION GAP 13.6; CHLORIDE,CL 105 mmol/L (101-111); SODIUM,NA 139 mmol/L (135-145)
--- NOTE | 2019-06-25 07:50 | EDM.PDOCBH ---
ED HPI GENERAL MEDICAL PROBLEM - General Chief Complaint: Drug or Alcohol Abuse Stated Complaint: OVERDOSE ALCOHOL COLD MEDICINE PER PT Time Seen by Provider: 06/23/19 17:10 Source of Information: Reports: Patient History Limitations: Reports: Intoxication - History of Present Illness INITIAL COMMENTS - FREE TEXT/NARRATIVE: Pt to ER with c/o OD of CCC's and codka. Patient showed up to CRU as he was to be an admit there. Pt was reportedly suicidal at CRU. Pt told ER staff that he wanted to and tried to kill himself by taking the medication. Pt states to provider that his is "a drug addict" and took pills to harm himself but does not want to . 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 Onset: Today, Sudden - Related Data Allergies Allergy/AdvReac Type Severity Reaction Status Date / Time cefprozil Allergy Hives Verified 06/23/19 19:33 cephalexin monohydrate Allergy Hives Verified 06/23/19 19:33 [From Keflex] Home Meds: Home Meds risperiDONE [Risperdal] 37.5 mg INJECT .[id number] 04/28/19 [History] Past Medical History - Past Health History Medical/Surgical History: Denies Medical/Surgical History HEENT History: Reports: None Cardiovascular History: Reports: None Respiratory History: Reports: None Gastrointestinal History: Reports: None Other Gastrointestinal History: THROWING UP BLOOD Genitourinary History: Reports: None Musculoskeletal History: Reports: Fracture Other Musculoskeletal History: RIGHT WRIST FRACTURE Neurological History: Reports: Other (See Below) Other Neuro History: Impulse Control Disorder Psychiatric History: Reports: ADHD, Addiction, Aggressive/Hostile Behaviors, Anxiety, Bipolar, Depression, Developmental Delay, Emotional Problems, Learning Disability, Mood Swings, OCD, Psych Hospitalization(s), Other (See Below) Other Psychiatric History: Polysubstance abuse in the past. Alcoholism. Outbursts of anger/impulse control disorder. Endocrine/Metabolic History: Reports: Obesity/BMI 30+ Hematologic History: Reports: None Immunologic History: Reports: None Oncologic (Cancer) History: Reports: None Dermatologic History: Reports: Cellulitis, Other (See Below) Other Dermatologic History: CHICKEN POX - Infectious Disease History Infectious Disease History: Reports: Chicken Pox - Past Surgical History Head Surgeries/Procedures: Reports: None HEENT Surgical History: Reports: None Cardiovascular Surgical History: Reports: None GI Surgical History: Reports: None Male Surgical History: Reports: None Musculoskeletal Surgical History: Reports: None Social & Family History - Family History Family Medical History: Unobtainable - Tobacco Use Smoking Status *Q: Current Every Day Smoker Years of Tobacco use: 20 Packs/Tins Daily: 1 - Caffeine Use Caffeine Use: Reports: Soda - Alcohol Use Days Per Week of Alcohol Use: 7 Number of Drinks Per Day: 10 Total Drinks Per Week: 70 Date of Last Drink: 06/23/19 - Recreational Drug Use Recreational Drug Use: Yes Drug Use in Last 12 Months: Yes Recreational Drug Type: Reports: Marijuana/Hashish, Methamphetamine Recreational Drug Use Frequency: Socially - Sexual History Sexual History: Reports: Sexually Active - Living Situation & Occupation Living situation: Reports: with Family Occupation: Employed ED ROS GENERAL - Review of Systems Review Of Systems: ROS reveals no pertinent complaints other than HPI. ED EXAM, BEHAVIORAL HEALTH - Physical Exam Exam: See Below Exam Limited By: Intoxication General Appearance: Mild Distress Eye Exam: Bilateral Eye: Conjunctival Injection Ears: Normal External Exam, Hearing Grossly Normal Nose: Normal Inspection Throat/Mouth: Normal Inspection, Normal Voice, No Airway Compromise Head: Atraumatic, Normocephalic Neck: Normal Inspection, Supple, Non-Tender, Full Range of Motion Respiratory/Chest: No Respiratory Distress, Lungs Clear, Normal Breath Sounds, No Accessory Muscle Use, Chest Non-Tender Cardiovascular: Normal Peripheral Pulses, Regular Rate, Rhythm, No Edema, No Gallop, No JVD, No Murmur, No Rub GI/Abdominal: Normal Bowel Sounds, Soft, Non-Tender, No Organomegaly, No Distention, No Abnormal Bruit, No Mass (Male) Exam: Deferred Rectal (Males) Exam: Deferred Back Exam: Normal Inspection, Full Range of Motion, NT Extremities: Normal Inspection, Normal Range of Motion, Non-Tender, Normal Capillary Refill, No Pedal Edema Neurological: Disoriented to Time Psychiatric: Restless, Inattentive Skin Exam: Warm, Dry, Intact, Normal color, No rash COURSE, BEHAVIORAL HEALTH COMP - Course Vital Signs: Last Vital Signs Temp 98.1 F 06/25/19 06:00 Pulse 81 06/25/19 06:00 Resp 18 06/25/19 06:00 BP 130/88 06/25/19 06:00 Pulse Ox 97 06/25/19 06:00 Orders, Labs, Meds: Medication Orders Enoxaparin Sodium (Lovenox) 40 mg SUBCUT DAILY [facility] Last Admin: 06/24/19 08:09 Dose: 40 mg Admin: 06/23/19 19:55 Dose: Not Given Sodium Chloride (Normal Saline) 1,000 mls @ 100 mls/hr IV ASDIRECTED [facility] Last Admin: 06/25/19 01:51 Dose: 100 mls/hr Infusion: 06/25/19 01:42 Dose: 100 mls/hr Admin: 06/24/19 15:42 Dose: 100 mls/hr Infusion: 06/24/19 15:42 Dose: 100 mls/hr Infusion: 06/24/19 15:42 Dose: 100 mls/hr Admin: 06/24/19 05:46 Dose: 100 mls/hr Infusion: 06/24/19 05:46 Dose: 100 mls/hr Admin: 06/23/19 20:26 Dose: 100 mls/hr Lorazepam (Ativan) 0 mg PO TITRATE PRN; Protocol PRN Reason: Withdrawal Symptoms Last Admin: 06/25/19 06:11 Dose: 1 mg Admin: 06/24/19 17:27 Dose: 1 mg Admin: 06/24/19 14:59 Dose: 2 mg Admin: 06/24/19 12:15 Dose: 2 mg Admin: 06/24/19 10:12 Dose: 1 mg Admin: 06/24/19 08:07 Dose: 2 mg Lorazepam (Ativan) 0 mg IVPUSH TITRATE PRN; Protocol PRN Reason: Withdrawal Symptoms Last Admin: 06/24/19 05:46 Dose: 2 mg Admin: 06/24/19 03:47 Dose: 2 mg Admin: 06/24/19 02:58 Dose: 2 mg Admin: 06/24/19 01:06 Dose: 2 mg Admin: 06/24/19 00:06 Dose: 2 mg Admin: 06/23/19 22:07 Dose: 2 mg Admin: 06/23/19 20:26 Dose: 2 mg Sodium Chloride (Saline Flush) 10 ml FLUSH ASDIRECTED PRN PRN Reason: Keep Vein Open Last Admin: 06/23/19 17:33 Dose: 10 ml Sodium Chloride (Saline Flush) 10 ml FLUSH ASDIRECTED PRN PRN Reason: Keep Vein Open Thiamine HCl (Vitamin B-1) 100 mg PO BEDTIME SHERICE Last Admin: 06/25/19 05:38 Dose: 100 mg Admin: 06/23/19 23:08 Dose: Laboratory Tests 06/23/19 06/23/19 06/23/19 Range/Units 16:50 16:50 17:06 WBC 7.2 (5.0-10.0) 10^3/uL RBC 5.65 (4.6-6.2) 10^6/uL Hgb 16.2 (14.0-18.0) g/dL Hct 48.2 (40.0-54.0) % MCV 85.3 (80-100) fL MCH 28.7 (27.0-34.0) pg MCHC 33.6 (33.0-35.0) g/dL Plt Count 323 (150-450) 10^3/uL Neut % (Auto) 57.5 (42.2-75.2) % Lymph % (Auto) 34.8 (20.5-50.1) % [place] % (Auto) 6.0 (2-8) % Eos % (Auto) 1.4 (1.0-3.0) % Baso % (Auto) 0.3 (0.0-1.0) % Sodium (135-145) mmol/L Potassium (3.6-5.0) mmol/L Chloride (101-111) mmol/L Carbon Dioxide (21.0-31.0) mmol/L Anion Gap BUN (7-18) mg/dL Creatinine (0.6-1.3) mg/dL Est Cr Clr Drug Dosing Estimated GFR (MDRD) BUN/Creatinine Ratio Glucose (74-105) mg/dL Calcium (8.4-10.2) mg/dl Total Bilirubin (0.2-1.0) mg/dL AST (10-42) IU/L ALT (10-60) IU/L Alkaline Phosphatase (42-121) IU/L Total Protein (6.7-8.2) g/dl Albumin (3.2-5.5) g/dl Globulin Albumin/Globulin Ratio Amylase (28-100) U/L Lipase (22-51) U/L Urine Color Yellow (YELLOW) Urine Appearance Clear (CLEAR) Urine pH 6.0 (5.0-9.0) Ur Specific [place] <= 1.005 (1.005-1.030) Urine Protein Negative (NEGATIVE) Urine Glucose (UA) Negative (NEGATIVE) Urine Ketones Trace H (NEGATIVE) Urine Occult Blood Negative (NEGATIVE) Urine Nitrite Negative (NEGATIVE) Urine Bilirubin Negative (NEGATIVE) Urine Urobilinogen 1.0 (0.2-1.0) mg/dL Ur Leukocyte Esterase Negative (NEGATIVE) Salicylates mg/dL Urine Opiates Screen Negative (NEGATIVE) Ur Oxycodone Screen Negative (NEGATIVE) Urine Methadone Screen Negative (NEGATIVE) Acetaminophen ug/mL Ur Barbiturates Screen Negative (NEGATIVE) U Tricyclic Antidepress Negative (NEGATIVE) Ur Phencyclidine Scrn Negative (NEGATIVE) Ur Amphetamine Screen Negative (NEGATIVE) U Methamphetamines Scrn Negative (NEGATIVE) Urine MDMA Screen Negative (NEGATIVE) U Benzodiazepines Scrn Negative (NEGATIVE) Urine Cocaine Screen Negative (NEGATIVE) U Marijuana (THC) Screen Negative (NEGATIVE) Ethyl Alcohol mg/dL 06/23/19 06/23/19 Range/Units 17:06 17:06 WBC (5.0-10.0) 10^3/uL RBC (4.6-6.2) 10^6/uL Hgb (14.0-18.0) g/dL Hct (40.0-54.0) % MCV (80-100) fL MCH (27.0-34.0) pg MCHC (33.0-35.0) g/dL Plt Count (150-450) 10^3/uL Neut % (Auto) (42.2-75.2) % Lymph % (Auto) (20.5-50.1) % [place] % (Auto) (2-8) % Eos % (Auto) (1.0-3.0) % Baso % (Auto) (0.0-1.0) % Sodium 146 H (135-145) mmol/L Potassium 3.6 (3.6-5.0) mmol/L Chloride 106 (101-111) mmol/L Carbon Dioxide 24.0 (21.0-31.0) mmol/L Anion Gap 19.6 BUN 3 L (7-18) mg/dL Creatinine 0.8 (0.6-1.3) mg/dL Est Cr Clr Drug Dosing TNP Estimated GFR (MDRD) > 60 BUN/Creatinine Ratio 3.75 Glucose 103 (74-105) mg/dL Calcium 8.7 (8.4-10.2) mg/dl Total Bilirubin 1.1 H (0.2-1.0) mg/dL AST 469 H (10-42) IU/L ALT 457 H (10-60) IU/L Alkaline Phosphatase 129 H (42-121) IU/L Total Protein 9.1 H (6.7-8.2) g/dl Albumin 4.5 (3.2-5.5) g/dl Globulin 4.6 Albumin/Globulin Ratio 0.98 Amylase 46 (28-100) U/L Lipase 47 (22-51) U/L Urine Color (YELLOW) Urine Appearance (CLEAR) Urine pH (5.0-9.0) Ur Specific [place] (1.005-1.030) Urine Protein (NEGATIVE) Urine Glucose (UA) (NEGATIVE) Urine Ketones (NEGATIVE) Urine Occult Blood (NEGATIVE) Urine Nitrite (NEGATIVE) Urine Bilirubin (NEGATIVE) Urine Urobilinogen (0.2-1.0) mg/dL Ur Leukocyte Esterase (NEGATIVE) Salicylates < 4 mg/dL Urine Opiates Screen (NEGATIVE) Ur Oxycodone Screen (NEGATIVE) Urine Methadone Screen (NEGATIVE) Acetaminophen < 10 ug/mL Ur Barbiturates Screen (NEGATIVE) U Tricyclic Antidepress (NEGATIVE) Ur Phencyclidine Scrn (NEGATIVE) Ur Amphetamine Screen (NEGATIVE) U Methamphetamines Scrn (NEGATIVE) Urine MDMA Screen (NEGATIVE) U Benzodiazepines Scrn (NEGATIVE) Urine Cocaine Screen (NEGATIVE) U Marijuana (THC) Screen (NEGATIVE) Ethyl Alcohol 352 mg/dL Medications Generic Name Dose Route Start Last Admin Trade Name Freq PRN Reason Stop Dose Admin Enoxaparin Sodium 40 mg 06/23/19 19:15 06/24/19 08:09 Lovenox SUBCUT 40 mg DAILY SHERICE Administration Sodium Chloride 1,000 mls @ 100 mls/hr 06/23/19 19:15 06/25/19 01:51 Normal Saline IV 100 mls/hr ASDIRECTED SHERICE Administration Lorazepam 0 mg 06/23/19 19:02 06/25/19 06:11 Ativan PO 1 mg TITRATE PRN Administration Withdrawal Symptoms Protocol Lorazepam 0 mg 06/23/19 19:02 06/24/19 05:46 Ativan IVPUSH 2 mg TITRATE PRN Administration Withdrawal Symptoms Protocol Sodium Chloride 10 ml 06/23/19 16:51 06/23/19 17:33 Saline Flush FLUSH 10 ml ASDIRECTED PRN Administration Keep Vein Open Sodium Chloride 10 ml 06/23/19 19:02 Saline Flush FLUSH ASDIRECTED PRN Keep Vein Open Thiamine HCl 100 mg 06/23/19 21:00 06/25/19 05:38 Vitamin B-1 PO 100 mg BEDTIME SHERICE Administration Discontinued Medications Generic Name Dose Route Start Last Admin Trade Name Freq PRN Reason Stop Dose Admin Sodium Chloride 1,000 mls @ 999 mls/hr 06/23/19 16:51 06/23/19 17:33 Normal Saline IV 06/23/19 17:51 999 mls/hr .BOLUS ONE Administration Departure - Departure Time of Disposition: 18:36 Disposition: Admitted As Inpatient 65 Condition: Fair Clinical Impression: Drug abuse, Alcohol abuse Alcohol intoxication Qualifiers: Complication of substance-induced condition: with unspecified complication Qualified Code(s): F10.929 - Alcohol use, unspecified with intoxication, unspecified - Discharge Information *PRESCRIPTION DRUG MONITORING PROGRAM REVIEWED*: No *COPY OF PRESCRIPTION DRUG MONITORING REPORT IN PATIENT MITCHEL: No
--- NOTE | 2019-06-25 10:01 | PCM.PN ---
- General Info Date of Service: 06/25/19 Admission Dx/Problem (Free Text): Admission Diagnosis/Problem Admission Diagnosis/Problem Suicidal behavior Subjective Update: No new complaints CIWA down to 2 this morning - Review of Systems General: Reports: No Symptoms HEENT: Reports: No Symptoms Pulmonary: Reports: No Symptoms Cardiovascular: Reports: No Symptoms Gastrointestinal: Reports: No Symptoms Genitourinary: Reports: No Symptoms Musculoskeletal: Reports: No Symptoms Skin: Reports: No Symptoms Neurological: Reports: No Symptoms Psychiatric: Reports: Suicidal Ideation - Patient Data Vitals - Most Recent: Last Vital Signs Temp 36.8 C 06/25/19 08:01 Pulse 87 06/25/19 08:01 Resp 20 06/25/19 08:01 BP 139/89 06/25/19 08:01 Pulse Ox 100 06/25/19 08:01 Weight - Most Recent: 107.671 kg I&O - Last 24 Hours: Intake & Output 06/24/19 06/25/19 06/25/19 22:59 06:59 14:59 Intake Total 600 1100 Balance 600 1100 Lab Results Last 24 Hours: Laboratory Results - last 24 hr 06/25/19 06/25/19 Range/Units 05:50 05:50 WBC 5.9 (5.0-10.0) 10^3/uL RBC 4.82 (4.6-6.2) 10^6/uL Hgb 13.8 L (14.0-18.0) g/dL Hct 41.9 (40.0-54.0) % MCV 86.9 (80-100) fL MCH 28.6 (27.0-34.0) pg MCHC 32.9 L (33.0-35.0) g/dL Plt Count 254 (150-450) 10^3/uL Sodium 139 (135-145) mmol/L Potassium 3.6 (3.6-5.0) mmol/L Chloride 105 (101-111) mmol/L Carbon Dioxide 24.0 (21.0-31.0) mmol/L Anion Gap 13.6 BUN 6 L (7-18) mg/dL Creatinine 0.6 (0.6-1.3) mg/dL Est Cr Clr Drug Dosing 199.39 mL/min Estimated GFR (MDRD) > 60 Glucose 87 (74-105) mg/dL Calcium 8.6 (8.4-10.2) mg/dl Total Bilirubin 1.2 H (0.2-1.0) mg/dL Direct Bilirubin 0.4 H (0.0-0.2) mg/dL Indirect Bilirubin 0.8 AST 243 H (10-42) IU/L ALT 270 H (10-60) IU/L Alkaline Phosphatase 104 (42-121) IU/L Total Protein 7.3 (6.7-8.2) g/dl Albumin 3.5 (3.2-5.5) g/dl Globulin 3.8 Albumin/Globulin Ratio 0.92 Med Orders - Current: Current Medications Enoxaparin Sodium (Lovenox) 40 mg SUBCUT DAILY [facility] Last Admin: 06/24/19 08:09 Dose: 40 mg Sodium Chloride (Normal Saline) 1,000 mls @ 100 mls/hr IV ASDIRECTED [facility] Last Admin: 06/25/19 01:51 Dose: 100 mls/hr Lorazepam (Ativan) 0 mg PO TITRATE PRN; Protocol PRN Reason: Withdrawal Symptoms Last Admin: 06/25/19 06:11 Dose: 1 mg Lorazepam (Ativan) 0 mg IVPUSH TITRATE PRN; Protocol PRN Reason: Withdrawal Symptoms Last Admin: 06/24/19 05:46 Dose: 2 mg Sodium Chloride (Saline Flush) 10 ml FLUSH ASDIRECTED PRN PRN Reason: Keep Vein Open Last Admin: 06/23/19 17:33 Dose: 10 ml Sodium Chloride (Saline Flush) 10 ml FLUSH ASDIRECTED PRN PRN Reason: Keep Vein Open Thiamine HCl (Vitamin B-1) 100 mg PO BEDTIME [facility] Last Admin: 06/25/19 05:38 Dose: 100 mg Discontinued Medications Sodium Chloride (Normal Saline) 1,000 mls @ 999 mls/hr IV .BOLUS ONE Stop: 06/23/19 17:51 Last Admin: 06/23/19 17:33 Dose: 999 mls/hr - Exam General: Alert, Oriented HEENT: Pupils Equal, Pupils Reactive Lungs: Clear to Auscultation, Normal Respiratory Effort Cardiovascular: Regular Rate, Regular Rhythm GI/Abdominal Exam: Normal Bowel Sounds, Soft, Non-Tender, No Organomegaly Extremities: Normal Inspection, Normal Range of Motion, Non-Tender, No Pedal Edema - Problem List Review Problem List Initiated/Reviewed/Updated: Yes - My Orders Last 24 Hours: My Active Orders 06/24/19 19:12 Communication Order [RC] ROUTINE 06/26/19 05:11 BASIC METABOLIC PANEL,BMP [CHEM] AM CBC W/O DIFF,HEMOGRAM [HEME] AM HEPATIC FUNCTION PANEL,HFP [CHEM] AM - Plan Plan:: Alcohol intoxication Monitor for alcohol withdrawal CIWA monitoring PRN ativan oral thiamine Elevated LFTs check lipase, amylase: normal trend LFTs: trending down check RUQ US: no features of cholecystitis Elevated LFTs likely 2/2 alcoholic liver disease, chronic Suicidal ideation Suicidal precautions Transfer to [facility] tomorrow for inpatient psych DVT ppx SC lovenox
[2019-06-25] MEDS: Enoxaparin 40 MG/0.4 ML Syringe SUBCUT SCH (10:31)
[2019-06-25] MEDS: Sodium Chloride 0.9% 10 ML Syringe FLUSH PRN (12:40)
[2019-06-26] MEDS: LORazepam 1 MG Tab PO PRN (03:11)
[2019-06-26 06:51] LABS: ANION GAP 13.5; CHLORIDE,CL 104 mmol/L (101-111); SODIUM,NA 139 mmol/L (135-145)
[2019-06-26 08:09] VITALS: BP 121/71; PULSE 96
--- NOTE | 2019-06-26 08:30 | PCM.DCSUM1 ---
Discharge Summary - Hospital Course Free Text/Narrative:: 28 yo M with PMH of alcohol abuse disorder, psychiatric illness presents with alcoholic intoxication and suicidal ideation. He admits taking substances to get "high". Alcohol level is 352, salicylate, acetaminophen are negative. LFTs are however elevated. Patient has no chest pain, no SOB, no abd pain, no nausea or vomiting. He admits to having suicidal ideation, but had no plans. WAs monitored on the CIWA protocol and received several doses of ativan Withdrawal symptoms improved and he was medically cleared to be transferred to the acute Psych facility in [place]. Follow up with PCP Diagnosis: Stroke: No Modified Loíza Scale: No Symptoms at All Modified Loíza Scale Score: 0 - Discharge Data Discharge Date: 06/26/19 Discharge Disposition: DC/Tfer to Psych Hosp/Unit 65 Condition: Serious - Referral to Home Health Primary Care Physician: PCP None - Patient Instructions Diet: Usual Diet as Tolerated Activity: As Tolerated - Discharge Plan *PRESCRIPTION DRUG MONITORING PROGRAM REVIEWED*: No *COPY OF PRESCRIPTION DRUG MONITORING REPORT IN PATIENT MITCHEL: No Home Medications: Home Meds risperiDONE [Risperdal] 37.5 mg INJECT .[id number] 04/28/19 [History] Forms: ED Department Discharge Referrals: PCP,None [Primary Care Provider] - - Discharge Summary/Plan Comment DC Time >30 min.: Yes - Patient Data Vitals - Most Recent: Last Vital Signs Temp 36.9 C 06/26/19 08:08 Pulse 96 06/26/19 08:08 Resp 20 06/26/19 08:08 BP 121/71 06/26/19 08:08 Pulse Ox 97 06/26/19 08:08 Weight - Most Recent: 105.868 kg I&O - Last 24 hours: Intake & Output 06/25/19 06/26/19 06/26/19 22:59 06:59 14:59 Intake Total 710 250 Balance 710 250 Lab Results - Last 24 hrs: Laboratory Results - last 24 hr 06/26/19 06/26/19 Range/Units 05:35 05:35 WBC 6.5 (5.0-10.0) 10^3/uL RBC 5.09 (4.6-6.2) 10^6/uL Hgb 14.7 (14.0-18.0) g/dL Hct 44.0 (40.0-54.0) % MCV 86.4 (80-100) fL MCH 28.9 (27.0-34.0) pg MCHC 33.4 (33.0-35.0) g/dL Plt Count 265 (150-450) 10^3/uL Sodium 139 (135-145) mmol/L Potassium 3.5 L (3.6-5.0) mmol/L Chloride 104 (101-111) mmol/L Carbon Dioxide 25.0 (21.0-31.0) mmol/L Anion Gap 13.5 BUN 5 L (7-18) mg/dL Creatinine 0.6 (0.6-1.3) mg/dL Est Cr Clr Drug Dosing 199.39 mL/min Estimated GFR (MDRD) > 60 Glucose 94 (74-105) mg/dL [place] 8.9 (8.4-10.2) mg/dl Total Bilirubin 0.8 (0.2-1.0) mg/dL Direct Bilirubin 0.2 (0.0-0.2) mg/dL Indirect Bilirubin 0.6 AST 231 H (10-42) IU/L ALT 267 H (10-60) IU/L Alkaline Phosphatase 103 (42-121) IU/L Total Protein 8.1 (6.7-8.2) g/dl Albumin 3.7 (3.2-5.5) g/dl Globulin 4.4 Albumin/Globulin Ratio 0.84 Med Orders - Current: Current Medications Enoxaparin Sodium (Lovenox) 40 mg SUBCUT DAILY [facility] Last Admin: 06/25/19 10:31 Dose: 40 mg Lorazepam (Ativan) 0 mg PO TITRATE PRN; Protocol PRN Reason: Withdrawal Symptoms Last Admin: 06/26/19 03:11 Dose: 1 mg Lorazepam (Ativan) 0 mg IVPUSH TITRATE PRN; Protocol PRN Reason: Withdrawal Symptoms Last Admin: 06/24/19 05:46 Dose: 2 mg Sodium Chloride (Saline Flush) 10 ml FLUSH ASDIRECTED PRN PRN Reason: Keep Vein Open Last Admin: 06/25/19 12:40 Dose: 10 ml Sodium Chloride (Saline Flush) 10 ml FLUSH ASDIRECTED PRN PRN Reason: Keep Vein Open Thiamine HCl (Vitamin B-1) 100 mg PO BEDTIME [facility] Last Admin: 06/25/19 20:40 Dose: Not Given Discontinued Medications Sodium Chloride (Normal Saline) 1,000 mls @ 999 mls/hr IV .BOLUS ONE Stop: 06/23/19 17:51 Last Admin: 06/23/19 17:33 Dose: 999 mls/hr Sodium Chloride (Normal Saline) 1,000 mls @ 100 mls/hr IV ASDIRECTED [facility] Last Admin: 06/25/19 01:51 Dose: 100 mls/hr
[2019-06-26] MEDS: Enoxaparin 40 MG/0.4 ML Syringe SUBCUT SCH (08:38)
== END 2019-06-26 10:05 ==
LOC: DL.ED 16:41 → DL.MS 18:39
PROVIDERS: ADMIT Hospitalist; ATTEND Hospitalist
DX: R45.851 Suicidal ideations (principal); F10.129 Alcohol abuse with intoxication, unspecified; R79.89 Other specified abnormal findings of blood chemistry; F31.30 Bipolar disorder, current episode depressed, mild or moderate severity, unspecified; F17.210 Nicotine dependence, cigarettes, uncomplicated; E66.9 Obesity, unspecified; Y90.8 Blood alcohol level of 240 mg/100 ml or more; Z79.899 Other long term (current) drug therapy; Z88.1 Allergy status to other antibiotic agents; Z86.59 Personal history of other mental and behavioral disorders; Z68.31 Body mass index [BMI] 31.0-31.9, adult
CPT/HCPCS: 36415; 76705; 80048; 80053; 80076; 80305; 80320; 80329; 81003; 82150; 83690; 85025; 85027; 93005; 96360; 99285; A9270; J1650; J2060; J7030; 96361; 96372; 96374; 96376; G0378; G0480

== ENCOUNTER 2019-09-05 01:51 | Emergency (ER) | payer MEDICAID ==
[2019-09-05] MEDS ORDERED: Potassium Chloride 10 MEQ in Premix Bag 1 BAG IV ONE (01:52)
[2019-09-05] MEDS ORDERED: LORazepam 2 MG/ML Syringe IVPUSH ONE (01:52)
[2019-09-05] MEDS ORDERED: Sodium Chloride 0.9% 1,000 ML IV ONE ×2 (01:52→02:00)
[2019-09-05] MEDS ORDERED: Lactated Ringers 1,000 ML IV ONE (01:52)
[2019-09-05] MEDS ORDERED: Sodium Chloride 0.9% 10 ML Syringe FLUSH PRN (01:57)
[2019-09-05 01:59] VITALS: BP 121/73; PULSE 105
[2019-09-05] MEDS ORDERED: LORazepam 2 MG/ML Syringe ONE ×2 (02:16→03:45)
[2019-09-05] MEDS ORDERED: Potassium Chloride 100 ML ONE (03:06)
[2019-09-05 06:31] LABS: SODIUM,NA 142 mmol/L (135-145)
[2019-09-05 06:32] LABS: ACETAMINOPHEN < 10.0 ug/mL
[2019-09-05 06:39] LABS: ANION GAP 13.9; CHLORIDE,CL 110 mmol/L (101-111)
== END 2019-09-05 04:34 ==
LOC: DL.ED 01:51
DX: T50.992A Poisoning by other drugs, medicaments and biological substances, intentional self-harm, initial encounter (principal); F10.129 Alcohol abuse with intoxication, unspecified; R45.851 Suicidal ideations; E87.6 Hypokalemia; Y90.8 Blood alcohol level of 240 mg/100 ml or more
CPT/HCPCS: 36415; 80053; 80305-QW; 81003; 85025; 99285-25; G0480; J2060; J3480; J7030; J7120

== ENCOUNTER 2020-08-08 10:33 | Emergency (ER) | payer MEDICAID ==
--- NOTE | 2020-08-08 10:12 | EDM.PDOCBH ---
ED HPI GENERAL MEDICAL PROBLEM - General Stated Complaint: HUMAN RESOURCES Time Seen by Provider: 08/08/20 10:24 Source of Information: Reports: Patient, RN, RN Notes Reviewed, Other (Human Services Contact - Martinez) History Limitations: Reports: No Limitations - History of Present Illness INITIAL COMMENTS - FREE TEXT/NARRATIVE: The patient presents to the ED via personal vehicle with Martinez from [facility] bella medical clearance for behavioral placement. Per patient report, he has been using methamphetamines, alcohol, and cannabis daily for the past 30 days. He states his last substance used was meth, which he feels he smoked around 0200 this morning (08/08/20). The patient reports he reached out to Martinez this morning, as he "...has been hallucinating, and needs help getting clean." He states he feels "ok" today. He denies fever, shaking chills, recent illness, chest pain, palpitations, shortness of breath, abdominal pain, nausea, vomiting, dysuria, hematuria, diarrhea, melena, hematochezia, loss of motor/sensory fuction, headache, or vision changes. He does attest to "..pain in lungs from smoking too much meth" and hallucinations. He states his hallucinations involve seeing people who are not there; he tells me he sees "..four people standing around the bed." The patient states he currently takes Resperal injections, but did not receive his latest dose. - Related Data Allergies Allergy/AdvReac Type Severity Reaction Status Date / Time cefprozil Allergy Hives Verified 09/05/19 01:55 cephalexin monohydrate Allergy Hives Verified 09/05/19 01:55 [From Keflex] Home Meds: Home Meds risperiDONE Microspheres [Risperdal Consta] 50 mg IM .[id number] 08/08/20 [History] Past Medical History - Past Health History Medical/Surgical History: Denies Medical/Surgical History HEENT History: Reports: None Cardiovascular History: Reports: None Respiratory History: Reports: None Gastrointestinal History: Reports: None Other Gastrointestinal History: THROWING UP BLOOD Genitourinary History: Reports: None Musculoskeletal History: Reports: Fracture Other Musculoskeletal History: RIGHT WRIST FRACTURE Neurological History: Reports: Other (See Below) Other Neuro History: Impulse Control Disorder Psychiatric History: Reports: ADHD, Addiction, Aggressive/Hostile Behaviors, Anxiety, Bipolar, Depression, Developmental Delay, Emotional Problems, Learning Disability, Mood Swings, OCD, Psych Hospitalization(s), Other (See Below) Other Psychiatric History: Polysubstance abuse in the past. Alcoholism. Outbursts of anger/impulse control disorder. Endocrine/Metabolic History: Reports: Obesity/BMI 30+ Hematologic History: Reports: None Immunologic History: Reports: None Oncologic (Cancer) History: Reports: None Dermatologic History: Reports: Cellulitis, Other (See Below) Other Dermatologic History: CHICKEN POX - Infectious Disease History Infectious Disease History: Reports: Chicken Pox - Past Surgical History Head Surgeries/Procedures: Reports: None HEENT Surgical History: Reports: None Cardiovascular Surgical History: Reports: None GI Surgical History: Reports: None Male Surgical History: Reports: None Musculoskeletal Surgical History: Reports: None Social & Family History - Family History Family Medical History: Unobtainable - Caffeine Use Caffeine Use: Reports: Soda - Sexual History Sexual History: Reports: Sexually Active - Living Situation & Occupation Living situation: Reports: with Family Occupation: Employed ED ROS GENERAL - Review of Systems Review Of Systems: Comprehensive ROS is negative, except as noted in HPI. ED EXAM, BEHAVIORAL HEALTH - Physical Exam Exam: See Below Exam Limited By: No Limitations (Patient is intoxicated, but cooperative and A/O x4) General Appearance: Alert, WD/WN, No Apparent Distress Eye Exam: Bilateral Eye: EOMI, Normal Inspection, PERRL Ears: Normal External Exam, Hearing Grossly Normal Throat/Mouth: Normal Inspection, Normal Voice, No Airway Compromise Head: Atraumatic, Normocephalic Neck: Normal Inspection, Supple, Non-Tender, Full Range of Motion Respiratory/Chest: No Respiratory Distress, Lungs Clear, Normal Breath Sounds, No Accessory Muscle Use. No: Chest Non-Tender (Patient states pain with inspiration), Crackles, Rales, Rhonchi, Wheezing Cardiovascular: Normal Peripheral Pulses, Regular Rate, Rhythm, No Edema, No Gallop, No JVD, No Murmur, No Rub GI/Abdominal: Normal Bowel Sounds, Soft, Non-Tender, No Distention, No Mass, Pelvis Stable (Male) Exam: Deferred Rectal (Males) Exam: Deferred Back Exam: Normal Inspection, Full Range of Motion. No: CVA Tenderness (L), CVA Tenderness (R) Extremities: Normal Inspection, Normal Range of Motion, Non-Tender, No Pedal Edema, Normal Capillary Refill Neurological: Alert, CN II-XII Intact, Normal Gait, No Motor/Sensory Deficits, Oriented x 3, Opens Eyes to Commands. No: Tongue Deviation (L), Tongue Deviation (R), Abnormal Sensation, Abnormal Motor Psychiatric: Alert, Oriented, Poor Eye Contact, Visual Hallucinations (Patient states he can see additional people in the room he knows aren't real) Skin Exam: Warm, Dry, Normal color, No rash, Wound/incision (Superficial scapes to midline lower abdomen). No: Ecchymosis, Erythema, Pallor, Petechiae, Rash #1 Interpretation EKG Date: 08/08/20 Time: 10:43 Rhythm: NSR Rate (Beats/Min): 86 [place]: Normal P-Wave: Present QRS: Normal ST-T: Other (S-Wave present in III and aVF) QT: Normal Comparison: NA - No Prior EKG EKG Interpretation Comments: SR; No evidence of acute ischemia; S-Wave present in III and AVF COURSE, BEHAVIORAL HEALTH COMP - Course Vital Signs: Last Vital Signs Temp 98.2 F 08/08/20 10:15 Pulse 98 08/08/20 10:15 Resp 18 08/08/20 10:15 BP 127/88 08/08/20 10:15 Pulse Ox 100 08/08/20 10:15 Orders, Labs, Meds: Active Orders 24 hr Category Date Time Status EKG Documentation Completion [RC] STAT Care 08/08/20 10:33 Active Laboratory Tests 08/08/20 08/08/20 08/08/20 Range/Units 10:24 10:24 11:12 WBC 5.4 (5.0-10.0) 10^3/uL RBC 5.32 (4.6-6.2) 10^6/uL Hgb 15.2 (14.0-18.0) g/dL Hct 45.1 (40.0-54.0) % MCV 84.8 (80-100) fL MCH 28.6 (27.0-34.0) pg MCHC 33.7 (33.0-35.0) g/dL Plt Count 252 (150-450) 10^3/uL Neut % (Auto) 50.8 (42.2-75.2) % Lymph % (Auto) 39.7 (20.5-50.1) % [place] % (Auto) 6.3 (2-8) % Eos % (Auto) 3.0 (1.0-3.0) % Baso % (Auto) 0.2 (0.0-1.0) % Sodium 145 (136-145) mmol/L Potassium 3.1 L (3.5-5.1) mmol/L Chloride 107 (98-107) mmol/L Carbon Dioxide 27 (21-32) mmol/L Anion Gap 14.1 H (7-13) mEq/L BUN 3 L (7-18) mg/dL Creatinine 0.92 (0.70-1.30) mg/dL Est Cr Clr Drug Dosing 117.41 mL/min Estimated GFR (MDRD) > 60 BUN/Creatinine Ratio 3.3 (No establ ref range) Glucose 90 (74-99) mg/dL Calcium 8.6 (8.5-10.1) mg/dL Phosphorus 2.5 L (2.6-4.7) mg/dL Magnesium 2.0 (1.8-2.4) mg/dL Total Bilirubin 0.4 (0.2-1.0) mg/dL AST 33 (15-37) U/L ALT 54 (16-63) U/L Alkaline Phosphatase 78 (46-116) U/L Total Protein 8.2 (6.4-8.2) g/dL Albumin 3.6 (3.4-5.0) g/dL Globulin 4.6 Albumin/Globulin Ratio 0.8 Urine Color Yellow (YELLOW) Urine Appearance Clear (CLEAR) Urine pH 7.5 (5.0-9.0) Ur Specific [place] 1.015 (1.005-1.030) Urine Protein Negative (NEGATIVE) Urine Glucose (UA) Negative (NEGATIVE) Urine Ketones Negative (NEGATIVE) Urine Occult Blood Negative (NEGATIVE) Urine Nitrite Negative (NEGATIVE) Urine Bilirubin Negative (NEGATIVE) Urine Urobilinogen 1.0 (0.2-1.0) mg/dL Ur Leukocyte Esterase Negative (NEGATIVE) Urine Opiates Screen (NEGATIVE) Ur Oxycodone Screen (NEGATIVE) Urine Methadone Screen (NEGATIVE) Ur Barbiturates Screen (NEGATIVE) U Tricyclic Antidepress (NEGATIVE) Ur Phencyclidine Scrn (NEGATIVE) Ur Amphetamine Screen (NEGATIVE) U Methamphetamines Scrn (NEGATIVE) Urine MDMA Screen (NEGATIVE) U Benzodiazepines Scrn (NEGATIVE) Urine Cocaine Screen (NEGATIVE) U Marijuana (THC) Screen (NEGATIVE) Ethyl Alcohol 212 (0) mg/dL 08/08/20 Range/Units 11:12 WBC (5.0-10.0) 10^3/uL RBC (4.6-6.2) 10^6/uL Hgb (14.0-18.0) g/dL Hct (40.0-54.0) % MCV (80-100) fL MCH (27.0-34.0) pg MCHC (33.0-35.0) g/dL Plt Count (150-450) 10^3/uL Neut % (Auto) (42.2-75.2) % Lymph % (Auto) (20.5-50.1) % [place] % (Auto) (2-8) % Eos % (Auto) (1.0-3.0) % Baso % (Auto) (0.0-1.0) % Sodium (136-145) mmol/L Potassium (3.5-5.1) mmol/L Chloride (98-107) mmol/L Carbon Dioxide (21-32) mmol/L Anion Gap (7-13) mEq/L BUN (7-18) mg/dL Creatinine (0.70-1.30) mg/dL Est Cr Clr Drug Dosing mL/min Estimated GFR (MDRD) BUN/Creatinine Ratio (No establ ref range) Glucose (74-99) mg/dL Calcium (8.5-10.1) mg/dL Phosphorus (2.6-4.7) mg/dL Magnesium (1.8-2.4) mg/dL Total Bilirubin (0.2-1.0) mg/dL AST (15-37) U/L ALT (16-63) U/L Alkaline Phosphatase (46-116) U/L Total Protein (6.4-8.2) g/dL Albumin (3.4-5.0) g/dL Globulin Albumin/Globulin Ratio Urine Color (YELLOW) Urine Appearance (CLEAR) Urine pH (5.0-9.0) Ur Specific [place] (1.005-1.030) Urine Protein (NEGATIVE) Urine Glucose (UA) (NEGATIVE) Urine Ketones (NEGATIVE) Urine Occult Blood (NEGATIVE) Urine Nitrite (NEGATIVE) Urine Bilirubin (NEGATIVE) Urine Urobilinogen (0.2-1.0) mg/dL Ur Leukocyte Esterase (NEGATIVE) Urine Opiates Screen Negative (NEGATIVE) Ur Oxycodone Screen Negative (NEGATIVE) Urine Methadone Screen Negative (NEGATIVE) Ur Barbiturates Screen Negative (NEGATIVE) U Tricyclic Antidepress Negative (NEGATIVE) Ur Phencyclidine Scrn Negative (NEGATIVE) Ur Amphetamine Screen Positive H (NEGATIVE) U Methamphetamines Scrn Positive H (NEGATIVE) Urine MDMA Screen Negative (NEGATIVE) U Benzodiazepines Scrn Negative (NEGATIVE) Urine Cocaine Screen Negative (NEGATIVE) U Marijuana (THC) Screen Positive H (NEGATIVE) Ethyl Alcohol (0) mg/dL Re-Assessment/Re-Exam: Medical workup unremarkable for acute processes. Patient clear to discharge home. Patient states he will discharge in the care of Martinez from [facility]. Departure - Departure Time of Disposition: 11:46 Disposition: Home, Self-Care 01 Condition: Good Clinical Impression: Alcohol abuse, Marijuana abuse, Methamphetamine abuse, Medical clearance for psychiatric admission Alcohol intoxication Qualifiers: Complication of substance-induced condition: with unspecified complication Qualified Code(s): F10.929 - Alcohol use, unspecified with intoxication, unspecified - Discharge Information *PRESCRIPTION DRUG MONITORING PROGRAM REVIEWED*: Not Applicable *COPY OF PRESCRIPTION DRUG MONITORING REPORT IN PATIENT MITCHEL: Not Applicable Instructions: Methamphetamines Use Disorder, Alcohol Abuse and Nutrition Additional Instructions: Refrain from using alcohol to excess, methamphetamines, and cannabis. Sepsis Event Note (ED) - Focused Exam Vital Signs: Vital Signs Temp Pulse Resp BP Pulse Ox 08/08/20 10:15 98.2 F 98 18 127/88 100 - My Orders Last 24 Hours: My Active Orders 08/08/20 10:33 EKG Documentation Completion [RC] STAT - Assessment/Plan Last 24 Hours: My Active Orders 08/08/20 10:33 EKG Documentation Completion [RC] STAT
[2020-08-08 10:20] VITALS: BP 127/88; PULSE 98
[2020-08-08 10:49] LABS: ANION GAP 14.1 mEq/L (7-13); CHLORIDE,CL 107 mmol/L (98-107); SODIUM,NA 145 mmol/L (136-145)
--- NOTE | 2020-08-08 11:00 | CR ---
PROCEDURE INFORMATION: Exam: XR Chest, 2 Views Exam date and time: 08/08/2020 10:43 AM Age: 29 years old Clinical indication: Chest pain; On breathing; Additional info: Chest pain with inspiration TECHNIQUE: Imaging protocol: XR of the chest Views: 2 views. COMPARISON: No relevant prior studies available. FINDINGS: Lungs: Unremarkable. No consolidation. Pleural space: Unremarkable. No pleural effusion. No pneumothorax. Heart/Mediastinum: Unremarkable. No cardiomegaly. Bones/joints: Unremarkable. IMPRESSION: No acute findings.
== END 2020-08-08 12:00 | disposition home or self-care (01) ==
LOC: DL.ED 10:33
DX: F10.129 Alcohol abuse with intoxication, unspecified (principal); F12.10 Cannabis abuse, uncomplicated; F15.10 Other stimulant abuse, uncomplicated; E66.9 Obesity, unspecified; Y90.7 Blood alcohol level of 200-239 mg/100 ml; Z88.1 Allergy status to other antibiotic agents
CPT/HCPCS: 36415; 71046; 80053; 80305-QW; 80307; 81003; 83735; 84100; 85025; 93005; 99284-25

== ENCOUNTER 2021-09-21 12:57 | Emergency (ER) | payer MEDICAID | END 2021-09-21 13:19 | disposition left against medical advice (07) | LOC: DL.ED 12:57 | DX: Z53.21 Procedure and treatment not carried out due to patient leaving prior to being seen by health care provider (principal) ==

== ENCOUNTER 2022-04-25 22:05 | Emergency (ER) | payer MEDICAID ==
[2022-04-25] MEDS ORDERED: MVI, Adult with Vitamin K 10 ML, Folic Acid 1 MG, Thiamine 100 MG in Lactated Ringers 1... IV ONE ×4 (22:43)
[2022-04-25 23:08] LABS: ANION GAP 16.2 mEq/L (7-13)
[2022-04-26 00:01] VITALS: BP 129/55; PULSE 81
== END 2022-04-25 23:59 | disposition home or self-care (01) ==
LOC: DL.ED 22:05
DX: R10.31 Right lower quadrant pain (principal); R10.11 Right upper quadrant pain; F10.10 Alcohol abuse, uncomplicated; R74.8 Abnormal levels of other serum enzymes; E66.9 Obesity, unspecified; Z88.1 Allergy status to other antibiotic agents; Y90.4 Blood alcohol level of 80-99 mg/100 ml; Z68.34 Body mass index [BMI] 34.0-34.9, adult
CPT/HCPCS: 36415; 80053; 80143; 80179; 80307; 82140; 82150; 83605; 83690; 83735; 85025; 96365; 99284; J3411; J7120; J3490

== ENCOUNTER 2023-12-28 12:29 | Emergency (ER) | payer MEDICAID, OTHER ==
[2023-12-28 12:46] VITALS: BP 135/97; PULSE 74
[2023-12-28 13:03] LABS: BASOPHILS PERCENT AUTO 0.5 % (0.0-1.0); EOSINOPHILS PERCENT AUTO 3.2 % (1.0-3.0); HEMATOCRIT 44.2 % (40.0-54.0); HEMOGLOBIN 14.6 g/dL (14.0-18.0); LYMPHOCYTES PERCENT AUTO 30.6 % (20.5-50.1); MEAN CORPUSCULAR HEMOGLOBIN 28.3 pg (27.0-34.0); MEAN CORPUSCULAR VOLUME 85.7 fL (80-100); MONOCYTES PERCENT AUTO 7.8 % (2-8); NEUTROPHILS PERCENT AUTO 57.9 % (42.2-75.2); PLATELET COUNT,PLT 246 10^3/uL (150-450); RED BLOOD CELL COUNT 5.16 10^6/uL (4.6-6.2); WHITE BLOOD CELL COUNT,WBC 6.2 10^3/uL (5.0-10.0)
[2023-12-28 13:07] LABS: APPEARANCE,URINE CLEAR (CLEAR); BILIRUBIN,URINE NEGATIVE (NEGATIVE); COLOR,URINE YELLOW (YELLOW); GLUCOSE,URINE NEGATIVE (NEGATIVE); KETONES,URINE NEGATIVE (NEGATIVE); LEUKOCYTE ESTERASE,URINE NEGATIVE (NEGATIVE); NITRITE,URINE NEGATIVE (NEGATIVE); OCCULT BLOOD,URINE NEGATIVE (NEGATIVE); PH,URINE 5.5 (5.0-9.0); PROTEIN,URINE NEGATIVE (NEGATIVE); UROBILINOGEN,URINE 0.2 mg/dL (0.2-1.0)
[2023-12-28 13:10] LABS: METHAMPHETAMINES,URINE NEGATIVE (NEGATIVE)
[2023-12-28 13:11] LABS: AMPHETAMINES,URINE NEGATIVE (NEGATIVE); BARBITURATES,URINE NEGATIVE (NEGATIVE); BENZODIAZEPINE,URINE NEGATIVE (NEGATIVE); MDMA (ECSTASY), URINE NEGATIVE (NEGATIVE); METHADONE,URINE NEGATIVE (NEGATIVE); OPIATES,URINE NEGATIVE (NEGATIVE); OXYCODONE,URINE NEGATIVE (NEGATIVE); PHENCYCLIDINE,URINE NEGATIVE (NEGATIVE); TCA,URINE NEGATIVE (NEGATIVE)
[2023-12-28 13:19] LABS: A/G RATIO 0.9; ALANINE AMINOTRANSFERASE,ALT 193 U/L (16-63); ALBUMIN 3.9 g/dL (3.4-5.0); ALKALINE PHOSPHATASE 88 U/L (46-116); ANION GAP 14.8 mEq/L (7-13); ASPARTATE AMNIOTRANSFERASE,AST 145 U/L (15-37); BILIRUBIN TOTAL 0.5 mg/dL (0.2-1.0); BLOOD UREA NITROGEN,BUN 6 mg/dL (7-18); BUN/CREATININE RATIO 5.9 (No establ ref range); CALCIUM 8.7 mg/dL (8.5-10.1); CARBON DIOXIDE,CO2 29 mmol/L (21-32); CHLORIDE,CL 105 mmol/L (98-107); CREATININE 1.01 mg/dL (0.70-1.30); EST CRCL DRUG DOSING (CG) 103.06 mL/min; ESTIMATED GFR 100 mL/min (>=60); ETHANOL BLOOD MEDICAL < 3 mg/dL (0); GLUCOSE RANDOM 104 mg/dL (70-99); MAGNESIUM 1.9 mg/dL (1.8-2.4); POTASSIUM,K 4.8 mmol/L (3.5-5.1); PROTEIN TOTAL,TP 8.4 g/dL (6.4-8.2); SODIUM,NA 144 mmol/L (136-145)
[2023-12-28 13:42] LABS: CORONAVIRUS COVID-19 NAA NEGATIVE (NEGATIVE); INFLUENZA A NAA NEGATIVE (NEGATIVE); INFLUENZA B NAA NEGATIVE (NEGATIVE)
== END 2023-12-28 13:28 | disposition home or self-care (01) ==
LOC: DL.ED 12:29
DX: F10.230 Alcohol dependence with withdrawal, uncomplicated (principal); Z79.899 Other long term (current) drug therapy; Z88.1 Allergy status to other antibiotic agents
CPT/HCPCS: 0240U; 36415; 80053; 80305-QW; 80307; 81003; 83735; 85025; 99282; 99283